=== PATIENT | female | born 1950 | race Caucasian/White ===

== ENCOUNTER 2021-02-19 08:50 | Emergency (ER) | payer MEDICARE, OTHER, SELFPAY ==
--- NOTE | 2021-02-19 | CT_ITS ---
WS: [id number] CT HEAD NONCONTRAST HISTORY: DIZZINESS X 1 WEEK TECHNIQUE: Contiguous axial imaging performed through the brain in 2.5 mm imaging. Bone and soft tiss ue windows. Sagittal and coronal reformats reviewed. All CT scans at [facility] use at ast one of these dose optimization techniques: automated exposure control; mA and/or kV adjustment pe r patient size (includes targeted exams where dose is matched to clinical indication); or iterative r econstruction. DLP: 888.36 mGy.cm COMPARISON: None available. No acute intracranial hemorrhage, midline shift or mass effect. Focal area of encephalomalacia in the RIGHT lateral cerebellum for prior infarct. No mass effect. Ventricles: Normal size with no hydrocephalus. Paranasal sinuses: As visualized are clear. Mastoid air cells: Well pneumatized. Calvarium and scalp: Skull is intact with no soft tissue edema or swelling. CT/CT head wo con* [id number] IMPRESSION: 1. No acute intracranial hemorrhage or edema. 2. 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
[2021-02-19 09:17] VITALS: BP 129/87; PULSE 72; RESP 16; TEMP 36.7; O2SAT 100; BMI 27.4
--- NOTE | 2021-02-19 09:30 | ECG_ITS ---
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
--- NOTE | 2021-02-19 09:32 | XR_ITS ---
WS: [id number] PORTABLE CHEST HISTORY: dizziness COMPARISON: None available. Lungs are clear and well expanded. No pleural effusion or pneumothorax. Cardiac size: Normal. Mediastinum/Aorta: Normal mediastinum. No osseous abnormality seen. XR/XR chest 1V portable [id number] IMPRESSION: Unremarkable portable chest.
--- NOTE | 2021-02-19 09:32 | CT_ITS ---
WS: [id number] CT ANGIOGRAM CEREBRAL AND CAROTID ARTERIES HISTORY: dizziness x 1 week, hx of brain tumor TECHNIQUE: CT angiogram is performed of the carotid and cerebral arteries. During arterial injection imaging is obtained from the skull vertex to the aortic arch in 1.25 mm imaging. Coronal and sagittal reformats are submitted. Additional multi planar reformats of the carotid and cerebral arteries are submitted, MIP imaging also reviewed. NASCET criteria utilized. All CT scans at [facility] use at least one of these dose optimization techniques: automated exposure control; mA and/or kV ad justment per patient size (includes targeted exams where dose is matched to clinical indication); or iterative reconstruction. CONTRAST: Omnipaque 350; 95 mL IV. DLP: 1777.71 mGy.cm COMPARISON: None available. Carotid Angiogram: Right carotid: Common carotid artery: Arises normally from the innominate artery. No significant plaque or stenosis. Internal carotid artery: No plaque or stenosis. External carotid artery: Patent. Left carotid: Common carotid artery: Arises normally from the aorta. No significant plaque or stenosis. Internal carotid artery: No plaque or stenosis. External carotid artery: Patent. Right vertebral artery: Unremarkable. Left vertebral artery: Very small caliber LEFT vertebral artery but it is patent. Subclavian arteries: No stenosis or significant abnormality. 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 RIGHT Thyroid gland: Small bilateral thyroid nodules. Largest measures 5 mm in the posterior RIGHT inferior thyroid. Osseous structures: Moderate degenerative disc space narrowing and osteophytosis at C5-6. CEREBRAL ANGIOGRAM: Intracranial vertebral arteries: Small caliber LEFT vertebral artery. Basilar artery: No significant stenosis or occlusion. No aneurysm. Intracranial Internal carotid arteries: Mild calcified plaque through the cavernous sinuses and supra clinoid. No stenosis. Middle cerebral arteries: Normal. Anterior cerebral arteries and ACOM: Normal. Posterior cerebral arteries and PCOM's: Posterior cerebral arteries are normal. Very small caliber an d hypoplastic posterior communicating arteries. Dural venous sinuses are normally enhancing. Mastoid air cells: Coalescence of mastoid air cells on the RIGHT from chronic mastoid air cell diseas e. Paranasal sinuses: Mucous retention cyst in the LEFT maxillary sinus. Calvarium: Normal. CT/CT angio headneck* [id number] IMPRESSION: 1. No significant carotid artery stenosis or occlusion or dissection. 2. Hypoplastic posterior communicating arteries. No aneurysms or occlusions. 3. Mild atherosclerosis intracranial carotid arteries.
--- NOTE | 2021-02-19 09:33 | W.ED.DIZZY ---
HPI - Dizziness General: Chief Complaint: Dizziness Stated Complaint: dizziness, fainting spells Time Seen by Provider: 02/19/21 09:24 History of Present Illness: HPI Narrative: Patient says she has had some dizziness for the last week or 2. Says it starts in the morning and is over with by 2:00 and then she is okay the rest of the day . Said she had some episodes like this in December and they ran CT of the head labs EKG and everything was normal. She has history of hypertension high cholesterol. 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 Patient says she is never passed out but she has felt very weak and has been outside working some to. Said she drinks a lot of Pepsi, water and milk. MD elicited complaint: dizziness and lightheadedness Pertinent past history: other (Brain tumor) Onset (ago): week(s) Severity: mild Description: lightheadedness Context: change in body position Associated symptoms: Denies chest pain, chills, headache(s), nausea, nasal congestion or vomiting Review of Systems Const: Denies: fever(s), chills or body aches Eyes: Denies: change in vision or blurry vision ENMT: Denies: throat pain or nasal congestion Card: Denies: chest pain or dyspnea on exertion Resp: Denies: dyspnea, productive cough or non-productive cough GI: Denies: abdominal pain, nausea or vomiting Musc: Denies: extremity pain Skin/Breast: Denies: rash Neuro: Reports: dizziness (When standing) and vertigo; Denies: headache(s) Psych: Denies: anxiety or depression Jovon/Lymph: Denies: easy bruising Physical Exam Const: COMMON NORMALS: no acute distress, average body habitus and patient oriented x3 HENMT: COMMON NORMALS: normocephalic, EAC's normal, TM's normal bilaterally and Normal external nose present HEAD & SCALP: normal to inspection and normocephalic FACE & SINUS: normal facial exam NOSE: Normal external nose present EXTERNAL AUDITORY CANAL: EAC's normal TYMPANIC MEMBRANE: TM's normal bilaterally MOUTH: Normal oral and palatal mucosa present THROAT: posterior oropharynx normal Eye: COMMON NORMALS: conjunctivae normal GENERAL EYE: appearance normal, both eyes and all related structures CONJUNCTIVA: Yes conjunctivae normal Neck/C-Spine: COMMON NORMALS: no JVD Chest: COMMONS NORMALS: normal inspection of the chest Resp: COMMON NORMALS: normal respiratory effort and clear to auscultation bilaterally AUSCULTATION: clear to auscultation bilaterally Cardio: COMMON NORMALS: no JVD, regular rate and regular rhythm RATE: regular rate RHYTHM: regular rhythm GI: COMMON NORMALS: Normal to inspection, nondistended, normoactive bowel sounds present Extremity: COMMON NORMALS: normal to inspection and full ROM Neuro: COMMON NORMALS: patient oriented x3, moves all extremities, no focal motor deficits and no sensory deficits noted Course Vital Signs: Vital signs: Vital Signs Temperature 98.1 F 02/19/21 09:17 Pulse Rate 52 L 02/19/21 13:11 Respiratory Rate 13 02/19/21 13:11 Blood Pressure 138/74 02/19/21 13:11 Pulse Oximetry 99 02/19/21 13:11 MDM - Dizziness MDM Narrative: Medical decision making narrative: Patient with dizziness since December. Worse in the last week. Patient's labs show little bit of elevated white count and positive UA for infection. CT noncontrast and contrast of the head and neck is negative for any problems did show old area infarct that she had. Patient encouraged to follow-up with her primary care get a referral to neurologist for ongoing dizziness but I feel that maybe it is exacerbated this week by possible mild dehydration plus UTI. Lab Data: Labs: Lab Results 02/19/21 02/19/21 02/19/21 Range/Units 10:00 10:00 10:00 WBC 12.2 H (4.0-10.0) 10^3/ uL RBC 4.69 (4.1-5.3) 10^6/u L Hgb 14.1 (11.5-15.3) g/dL Hct 42.7 (37.0-47.0) % MCV 91.0 (81-99) fl MCH 30.1 (28.0-34.0) pg MCHC 33.0 (30.0-36.0) g/dL RDW 13.1 (12.1-15.1) % Plt Count 293 (130-400) 10^3/c mm MPV 10.4 (7.4-10.4) fL Neut % (Auto) 66.6 % Lymph % (Auto) 24.2 % Frio % (Auto) 7.0 % Eos % (Auto) 0.9 % Baso % (Auto) 0.5 % Neut # (Auto) 8.14 H (1.8-7.7) 10^3/u L Lymph # (Auto) 3.0 (0.8-4.8) 10^3/u L Frio # (Auto) 0.9 (0.2-0.9) 10^3/u L Eos # (Auto) 0.1 (0.0-0.8) 10^3/u L Baso # (Auto) 0.1 (0.0-0.1) 10^3/u L Nucleated RBC % (a uto) 0 % Nucleated RBCs # 0.0 /100WBC PT (12.1-14.9) SECO NDS INR (0.8-1.2) APTT 25.2 (23.9-36.7) SECO NDS Sodium 137 (136-145) mmol/L Potassium 3.8 (3.5-5.1) mmol/L Chloride 101 (98-107) mmol/L Carbon Dioxide 23 (22-29) mmol/L Anion Gap 16.8 (5-19) BUN 18 (8-23) mg/dL Creatinine 0.6 (0.5-0.9) mg/dL GFR Calculation 99.1 (90-130) mL/min Glucose 88 (65-115) mg/dL Calculated Osmolal ity 285 (285-295) mOsm/k g Calcium 8.9 (8.5-10.5) mg/dL Total Bilirubin 0.3 (0.15-1.2) mg/dL AST 15 (0-32) U/L ALT 23 (0-33) U/L Alkaline Phosphata se 122 H (35-105) IU/L Total Protein 7.1 (6.6-8.7) g/dL Albumin 4.4 (3.5-5.2) g/dL Globulin 2.7 (1.3-4.6) g/dL Urine Color (Yellow) Urine Appearance (CLEAR) Urine pH (5-7) Ur Specific Gravit y (1.005-1.030) Urine Protein (Negative) Urine Glucose (UA) (Normal) Urine Ketones (Negative) Urine Blood (Negative) Urine Nitrate (Negative) Urine Bilirubin (Negative) Urine Urobilinogen (Negative) mg/dL Ur Leukocyte Mitra ase (Negative) Urine RBC (0-2) /hpf Urine WBC (0-5) /hpf Ur Squamous Epith Cells (0-5) /hpf Amorphous Sediment Urine Bacteria (NONE) /hpf 02/19/21 02/19/21 Range/Units 10:00 10:53 WBC (4.0-10.0) 10^3/ uL RBC (4.1-5.3) 10^6/u L Hgb (11.5-15.3) g/dL Hct (37.0-47.0) % MCV (81-99) fl MCH (28.0-34.0) pg MCHC (30.0-36.0) g/dL RDW (12.1-15.1) % Plt Count (130-400) 10^3/c mm MPV (7.4-10.4) fL Neut % (Auto) % Lymph % (Auto) % Frio % (Auto) % Eos % (Auto) % Baso % (Auto) % Neut # (Auto) (1.8-7.7) 10^3/u L Lymph # (Auto) (0.8-4.8) 10^3/u L Frio # (Auto) (0.2-0.9) 10^3/u L Eos # (Auto) (0.0-0.8) 10^3/u L Baso # (Auto) (0.0-0.1) 10^3/u L Nucleated RBC % (a uto) % Nucleated RBCs # /100WBC PT 13.40 (12.1-14.9) SECO NDS INR 0.99 (0.8-1.2) APTT (23.9-36.7) SECO NDS Sodium (136-145) mmol/L Potassium (3.5-5.1) mmol/L Chloride (98-107) mmol/L Carbon Dioxide (22-29) mmol/L Anion Gap (5-19) BUN (8-23) mg/dL Creatinine (0.5-0.9) mg/dL GFR Calculation (90-130) mL/min Glucose (65-115) mg/dL Calculated Osmolal ity (285-295) mOsm/k g Calcium (8.5-10.5) mg/dL Total Bilirubin (0.15-1.2) mg/dL AST (0-32) U/L ALT (0-33) U/L Alkaline Phosphata se (35-105) IU/L Total Protein (6.6-8.7) g/dL Albumin (3.5-5.2) g/dL Globulin (1.3-4.6) g/dL Urine Color Straw (Yellow) Urine Appearance Clear (CLEAR) Urine pH 5 (5-7) Ur Specific Gravit y 1.015 (1.005-1.030) Urine Protein Neg (Negative) Urine Glucose (UA) Norm (Normal) Urine Ketones Negative (Negative) Urine Blood 2+ H (Negative) Urine Nitrate Negative (Negative) Urine Bilirubin Neg (Negative) Urine Urobilinogen Norm (Negative) mg/dL Ur Leukocyte Mitra ase 1+ H (Negative) Urine RBC 0-4 H (0-2) /hpf Urine WBC 10-15 H (0-5) /hpf Ur Squamous Epith Cells 0-4 H (0-5) /hpf Amorphous Sediment Not Reportable Urine Bacteria 2+ H (NONE) /hpf EKG Data^: EKG 1: EKG interpretation date: 02/19/21 EKG interpretation time: 10:32 Computer generated interpretation: Normal sinus rhythm. Ventricular rate 60 bpm [place] interval 176 ms QRS duration 78 ms QT is 415 ms Discharge Plan Discharge Patient Disposition: Home Clinical Impression: Acute UTI Condition: Stable Prescriptions: New cephalexin 250 mg capsule 250 mg PO TID 7 Days Qty: 21 RF: 0 No Action atorvastatin 20 mg tablet 20 mg PO QAM RF: 0 DHEA 25 mg Capsule 25 mg PO DAILY RF: 0 Aspir-81 81 mg Tablet,Delayed Release (Dr/Ec) 81 mg PO QAM RF: 0 lisinopril 10 mg tablet See Rx Instructions .ROUTE .COMPLEX RF: 0 wwfrmczs-imrqkboer-ZN 3.5-10,000-1 mg/mL-unit/mL-% drops,suspension 4 drp otic (ear) BID RF: 0 CoQ-10 100 mg Capsule 100 mg PO DAILY RF: 0 PreserVision AREDS-2 250-90-40-1 mg Capsule 1 cap PO DAILY RF: 0 MegaRed Joint Care 353 mg Capsule 1 cap PO DAILY RF: 0 Prog/Test 100/1.5mg Cream See Rx Instructions .ROUTE .COMPLEX RF: 0 Vitamin D3 1 cap PO DAILY RF: 0 Discharge Orders: Discharge ED (Routine); Ordered 02/19/21 Ordered By: Cheng Lui Referrals: Deb Valladares [Primary Care Provider] - Discharge Diet: Usual diet Discharge Activity: Resume usual activity Patient Instructions: Dehydration (ED), Urinary Tract Infection in Women (ED) Activity Restrictions/Additional Instructions: Follow-up with medical provider as directed. Take medications as prescribed. Return to the ER or your medical provider if condition worsens. Please read and understand discharge instructions. If any questions ask please. See if your primary care provider will give you referral to neurology Coding Level of Care Code ED Order Packer for Chg Fwd Exam Comprehensive
[2021-02-19 09:52] VITALS: BP 129/76; PULSE 67; RESP 16; O2SAT 98
[2021-02-19] MEDS: sodium chloride 0.9% 1,000 ML 999 ML IV (10:01)
[2021-02-19 10:11] LABS: Basophils # 0.1 10^3/uL (0.0-0.1); Basophils % 0.5 %; Eosinophils # 0.1 10^3/uL (0.0-0.8); Eosinophils % 0.9 %; Hematocrit 42.7 % (37.0-47.0); Hemoglobin 14.1 g/dL (11.5-15.3); Lymphocytes % 24.2 %; Mean Corpuscular Hemoglobin 30.1 pg (28.0-34.0); Mean Platelet Volume 10.4 fL (7.4-10.4); Monocytes # 0.9 10^3/uL (0.2-0.9); Neutrophils # 8.14 10^3/uL (1.8-7.7); Neutrophils % 66.6 %; Nucleated Red Blood Cells % 0 %; Platelet Count 293 10^3/cmm (130-400); Red Blood Count 4.69 10^6/uL (4.1-5.3); Red Cell Distribution Width 13.1 % (12.1-15.1); White Blood Count 12.2 10^3/uL (4.0-10.0)
[2021-02-19 10:28] LABS: Partial Thromboplastin Time 25.2 SECONDS (23.9-36.7)
[2021-02-19 10:43] LABS: Alanine Aminotransferase 23 U/L (0-33); Albumin Level 4.4 g/dL (3.5-5.2); Alkaline Phosphatase 122 IU/L (35-105); Anion Gap 16.8 (5-19); Aspartate Amino Transferase 15 U/L (0-32); Blood Urea Nitrogen 18 mg/dL (8-23); Calcium 8.9 mg/dL (8.5-10.5); Carbon Dioxide 23 mmol/L (22-29); Chloride 101 mmol/L (98-107); Globulin 2.7 g/dL (1.3-4.6); Glomerular Filtration Rate 99.1 mL/min (90-130); Glucose 88 mg/dL (65-115); Osmolality Calculated 285 mOsm/kg (285-295); Potassium 3.8 mmol/L (3.5-5.1); Sodium 137 mmol/L (136-145); Total Bilirubin 0.3 mg/dL (0.15-1.2); Total Protein 7.1 g/dL (6.6-8.7)
[2021-02-19 10:55] LABS: INR 0.99 (0.8-1.2)
[2021-02-19 11:03] LABS: Add Urine Microscopic? YES; Bilirubin Urine Neg (Negative); Blood Urine 2+ (Negative); Glucose Urine UA Norm (Normal); Ketones Urine Negative (Negative); Leukocyte Esterase Urine 1+ (Negative); Nitrate Urine Negative (Negative); Protein Urine Neg (Negative); Specific Gravity, Urine 1.015 (1.005-1.030); Urine Appearance Clear (CLEAR); Urine Color Straw (Yellow); Urobilinogen Urine Norm (Negative); pH Urine 5 (5-7)
[2021-02-19 11:05] LABS: Add Urine Culture? Yes; Bacteria Urine 2+ /hpf; RBC Urine 0-4 /hpf (0-2); Squamous Epithelial Cell Urine 0-4 /hpf (0-5)
[2021-02-19] MEDS: iohexol 350 mg/mL 100 mL Btl IV (11:45)
[2021-02-19] MEDS: cefTRIAXone 1,000 MG in sodium chloride 0.9% (plus) 50 ML 100 MG IV (12:25)
[2021-02-19 12:27] VITALS: BP 139/74; PULSE 60; RESP 13; O2SAT 94
[2021-02-19 13:11] VITALS: BP 138/74; PULSE 52; RESP 13; O2SAT 99
== END 2021-02-19 13:12 | disposition home or self-care (01) ==
PROVIDERS: Emergency Provider Nurse Practitioner Family; PCP Nurse Practitioner Family
DX: N39.0 Urinary tract infection, site not specified (principal); I10 Essential (primary) hypertension
CPT/HCPCS: 70450; 70496; 70498; 71045; 80053; 81001; 85025; 85610; 85730; 87086; 93005; 96365; 99284; J0696; J7030; Q9967